=== PATIENT | female | born 1995 | race African-American/Black ===

== ENCOUNTER 2017-07-30 10:36 | Emergency (ER) | payer MEDICAID, OTHER ==
[~2017-07-30] VITALS: Ht 180.3 cm; Wt 100.0 kg
[~2017-07-30 10:36] MED LIST: NOCURR
[2017-07-30 11:32] LABS: EOSINOPHILS # (AUTO) 0.01 K/uL (0.00-0.70); EOSINOPHILS % (AUTO) 0.09 % (1.0-6.0); HEMATOCRIT 39.4 % (36-46); HEMOGLOBIN 12.8 g/dL (12.0-16.0); LYMPHOCYTES # (AUTO) 2.6 K/uL (1.0-4.8); LYMPHOCYTES % (AUTO) 18.2 % (22.0-44.0); MEAN CORPUSCULAR HEMOGLOBIN 25.7 pg (26.0-34.0); MEAN CORPUSCULAR HGB CONC 32.6 G/dL (31.0-37.0); MEAN CORPUSCULAR VOLUME 79 fL (80-100); MONOCYTES # (AUTO) 0.8 K/uL (0.1-1.0); MONOCYTES % (AUTO) 5.5 % (2.0-9.0); NEUTROPHILS # (AUTO) 11.1 K/uL (1.8-7.7); NEUTROPHILS % (AUTO) 76.2 % (40.0-70.0); RED BLOOD CELL COUNT(AUTO) 4.99 MIL/uL (4.00-5.20); RED CELL DISTRIBUTION WIDTH 14.1 % (11.5-14.5)
[2017-07-30 11:35] LABS: WHITE BLOOD COUNT (AUTO) 19.2 K/uL (4.5-11.0)
[2017-07-30 11:41] LABS: ANION GAP 15 mmol/L (8-16); CALCIUM, TOTAL 9.4 mg/dL (8.8-10.5); CARBON DIOXIDE 23 mmol/L (22-29); CHLORIDE 104 mmol/L (98-107); CREATININE 0.83 mg/dL (0.60-1.30); GLOMERULAR FILTR. RATE CALC > 60 mL/min (>60); POTASSIUM 3.9 mmol/L (3.5-5.1); SODIUM SERUM 142 mmol/L (136-145); UREA NITROGEN, BLOOD 10 mg/dL (7-18)
[2017-07-30 11:49] LABS: ALANINE AMINOTRANSFERASE 26 U/L (12-78); ALBUMIN 3.9 g/dL (3.4-5.0); ASPARTATE AMINOTRANSFERASE 17 U/L (15-37); BILIRUBIN,TOTAL 0.7 mg/dL (0.1-1.0); TOTAL PROTEIN, SERUM 8.1 g/dL (6.4-8.2)
[2017-07-30 11:51] LABS: PLATELET COUNT (AUTO) 39 K/uL (150-450)
[2017-07-30 14:05] LABS: APPEARANCE,URINE TURBID (CLEAR); GLUCOSE, URINE (UA) NEGATIVE (NEGATIVE); KETONES,URINE 15 mg/dL (NEGATIVE); LEUKOCYTE ESTERASE ,URINE MODERATE (NEGATIVE); OCCULT BLOOD,URINE NEGATIVE (NEGATIVE); PH,URINE 5.5 (5.0-8.0); PROTEIN,URINE POS 1+ (NEGATIVE)
[2017-07-30 14:06] LABS: ADD UA MICROSCOPIC YES
[2017-07-30 14:11] LABS: RBC,URINE 0-2 /HPF (0-2)
[2017-07-30 14:12] LABS: AMORPHOUS SEDIMENT,UR Many /LPF (None Seen); SQUAMOUS EPITHELIAL CELL,UR Few /LPF (None Seen)
[2017-07-30 16:12] LABS: BASOPHILS % (AUTO) 0.6 % (0.0-2.0); EOSINOPHILS % (AUTO) 0.3 % (1.0-6.0); HEMATOCRIT 39.8 % (36-46); HEMOGLOBIN 13.4 g/dL (12.0-16.0); LYMPHOCYTES # (AUTO) 1.4 K/uL (1.0-4.8); LYMPHOCYTES % (AUTO) 16.8 % (22.0-44.0); MEAN CORPUSCULAR HEMOGLOBIN 26.2 pg (26.0-34.0); MEAN CORPUSCULAR HGB CONC 33.5 G/dL (31.0-37.0); MEAN CORPUSCULAR VOLUME 78 fL (80-100); MONOCYTES # (AUTO) 0.7 K/uL (0.1-1.0); MONOCYTES % (AUTO) 7.9 % (2.0-9.0); NEUTROPHILS # (AUTO) 6.3 K/uL (1.8-7.7); NEUTROPHILS % (AUTO) 74.4 % (40.0-70.0); RED CELL DISTRIBUTION WIDTH 14.1 % (11.5-14.5)
[2017-07-30 16:14] LABS: WHITE BLOOD COUNT (AUTO) 18.9 K/uL (4.5-11.0)
[2017-07-30 16:37] VITALS: BP 151/78
[2017-07-30 17:20] LABS: PLATELET COUNT (AUTO) 123 K/uL (150-450)
== END 2017-07-30 16:40 | disposition home or self-care (01) ==
LOC: EMS 10:38
DX: F41.9 Anxiety disorder, unspecified (principal); D72.829 Elevated white blood cell count, unspecified
CPT/HCPCS: 36415; 71010; 80053; 80307; 81001; 83605; 84703; 85025; 85049; 87040; 87086; 99285; G0480

== ENCOUNTER 2017-12-03 18:25 | Emergency (ER) | payer OTHER ==
[~2017-12-03] VITALS: Ht 160 cm; Wt 95.0 kg
[2017-12-03] MEDS ORDERED: LIDOCAINE HCL 1% 10 ML VIAL INJ ONE (20:00)
[2017-12-03] MEDS ORDERED: BACITRACIN 0.9 GM PACKET OINTMENT TP ONE (20:00)
[2017-12-03 20:30] VITALS: BP 135/87
== END 2017-12-03 20:52 | disposition home or self-care (01) ==
LOC: EMS 18:25
DX: S01.81XA Laceration without foreign body of other part of head, initial encounter (principal); R03.0 Elevated blood-pressure reading, without diagnosis of hypertension; F20.9 Schizophrenia, unspecified; W18.09XA Striking against other object with subsequent fall, initial encounter; Y93.01 Activity, walking, marching and hiking; Y92.89 Other specified places as the place of occurrence of the external cause; Y99.8 Other external cause status
CPT/HCPCS: 12011; 99283; J3490

== ENCOUNTER 2020-01-16 05:05 | Inpatient (IN) | payer MEDICAID ==
[~2020-01-16] VITALS: Ht 160 cm; Wt 118.5 kg
[2020-01-16 06:00] VITALS: BP 133/58
[2020-01-16 08:19] VITALS: BP 120/96
[2020-01-16] MEDS: LORazepam 2 MG TABLET PO PRN ×3 (08:22→21:23)
[2020-01-16] MEDS: OLANZapine 5 MG TABLET PO SCH ×2 (08:22→16:08)
[2020-01-16] MEDS ORDERED: PNEUMOCOCCAL VACCINE POLYVALENT 0.5 ML VIAL [PPSV23] IM ONE (10:15)
[2020-01-16 16:02] VITALS: BP 106/87
[2020-01-16] MEDS ORDERED: GuaiFENesin/D-METHORPHAN [SUGAR-FREE] 200-20MG/10 ML SYRUP UDCUP PO PRN (16:45)
[2020-01-16] MEDS ORDERED: ONDANSETRON HCL 4 MG TABLET PO PRN (16:45)
[2020-01-16] MEDS ORDERED: ALBUTEROL SULFATE HFA 90 MCG/PUFF 8 GM INHALER IH PRN (16:45)
[2020-01-16] MEDS ORDERED: NICOTINE 14 MG/24 HOUR PATCH TD PRN (16:45)
[2020-01-16] MEDS ORDERED: CloNIDine HCL 0.1 MG TABLET PO PRN (16:45)
[2020-01-16] MEDS ORDERED: PETROLATUM,WHITE 28 GM JELLY TP PRN (16:45)
[2020-01-16] MEDS ORDERED: MAG HYDROX/AL HYDROX/SIMETH ES 30 ML SUSPENSION UDCUP PO PRN (16:45)
[2020-01-16] MEDS ORDERED: LOPERAMIDE HCL 2 MG CAPSULE PO PRN (16:45)
[2020-01-16] MEDS ORDERED: QUEtiapine FUMARATE 200 MG TABLET PO SCH (21:00)
[2020-01-16] MEDS ORDERED: DIVALPROEX SODIUM 500 MG DR TABLET PO SCH (21:00)
[2020-01-17 00:12] VITALS: BP 134/66
[2020-01-17] MEDS ORDERED: IBUPROFEN 400 MG TABLET PO PRN (08:15)
[2020-01-17] MEDS ORDERED: MAGNESIUM HYDROXIDE SUSPENSION 30 ML UDCUP PO PRN (08:15)
[2020-01-17] MEDS ORDERED: ACETAMINOPHEN 325 MG TABLET PO PRN (08:15)
[2020-01-17] MEDS ORDERED: CloNIDine HCL 0.1 MG TABLET PO PRN (08:15)
[2020-01-17] MEDS ORDERED: PETROLATUM,WHITE 28 GM JELLY TP PRN (08:15)
[2020-01-17] MEDS ORDERED: ONDANSETRON HCL 4 MG TABLET PO PRN (08:15)
[2020-01-17] MEDS ORDERED: LOPERAMIDE HCL 2 MG CAPSULE PO PRN (08:15)
[2020-01-17] MEDS ORDERED: ALBUTEROL SULFATE HFA 90 MCG/PUFF 8 GM INHALER IH PRN (08:15)
[2020-01-17] MEDS ORDERED: MAG HYDROX/AL HYDROX/SIMETH ES 30 ML SUSPENSION UDCUP PO PRN (08:15)
[2020-01-17] MEDS ORDERED: NICOTINE 14 MG/24 HOUR PATCH TD PRN (08:15)
[2020-01-17] MEDS ORDERED: DOCUSATE SODIUM 100 MG CAPSULE PO PRN (08:15)
[2020-01-17] MEDS ORDERED: GuaiFENesin/D-METHORPHAN [SUGAR-FREE] 200-20MG/10 ML SYRUP UDCUP PO PRN (08:15)
[2020-01-17] MEDS: OLANZapine 5 MG TABLET PO SCH (08:17)
[2020-01-17] MEDS: LORazepam 2 MG TABLET PO PRN ×3 (08:17→20:31)
[2020-01-17 08:31] LABS: BASOPHILS % (AUTO) 0.5 % (0.0-2.0); HEMATOCRIT 36.7 % (36-46); HEMOGLOBIN 12.3 g/dL (12.0-16.0); MEAN CORPUSCULAR HEMOGLOBIN 25.6 pg (26.0-34.0); MEAN CORPUSCULAR HGB CONC 33.5 G/dL (31.0-37.0); MEAN CORPUSCULAR VOLUME 77 fL (80-100); MONOCYTES # (AUTO) 1.3 K/uL (0.1-1.0); MONOCYTES % (AUTO) 9.1 % (2.0-9.0); NEUTROPHILS # (AUTO) 8.4 K/uL (1.8-7.7); NEUTROPHILS % (AUTO) 60.4 % (40.0-70.0); RED CELL DISTRIBUTION WIDTH 14.1 % (11.5-14.5)
[2020-01-17 08:46] LABS: CHOL/HDL RATIO 2.8 (3.9-5.7)
[2020-01-17 09:19] VITALS: BP 128/73
[2020-01-17] MEDS ORDERED: DIVA-112 PO (09:38)
[2020-01-17] MEDS ORDERED: OLAN10TA3 PO (09:38)
[2020-01-17] MEDS ORDERED: QUET100T PO (09:38)
[2020-01-17] MEDS: IBUPROFEN 400 MG TABLET PO PRN ×2 (10:21→19:27)
[2020-01-17 10:30] LABS: PLATELET COUNT (AUTO) 105 K/uL (150-450)
[2020-01-17 16:03] VITALS: BP 115/62
[2020-01-17] MEDS: DIVALPROEX SODIUM 500 MG DR TABLET PO SCH (16:47)
[2020-01-17] MEDS: QUEtiapine FUMARATE 200 MG TABLET PO SCH (16:48)
[2020-01-17 19:27] VITALS: BP 108/61
[2020-01-18 01:03] VITALS: BP 131/80
[2020-01-18] MEDS: ZOLPIDEM TARTRATE 10 MG TABLET PO PRN ×2 (02:08→20:13)
[2020-01-18] MEDS: QUEtiapine FUMARATE 200 MG TABLET PO SCH ×2 (08:44→16:30)
[2020-01-18] MEDS: DIVALPROEX SODIUM 500 MG DR TABLET PO SCH ×2 (08:45→16:29)
[2020-01-18] MEDS: ESCITALOPRAM OXALATE 10 MG TABLET PO SCH (12:30)
[2020-01-18 16:05] VITALS: BP 136/82
[2020-01-18] MEDS: IBUPROFEN 400 MG TABLET PO PRN (16:30)
[2020-01-18] MEDS: LORazepam 2 MG TABLET PO PRN (18:50)
[2020-01-19] MEDS: LORazepam 2 MG TABLET PO PRN ×4 (00:15→15:10)
[2020-01-19 01:02] VITALS: BP 140/80
[2020-01-19 05:00] VITALS: BP 130/72
[2020-01-19] MEDS: ESCITALOPRAM OXALATE 10 MG TABLET PO SCH (08:19)
[2020-01-19] MEDS: DIVALPROEX SODIUM 500 MG DR TABLET PO SCH ×2 (08:20→16:29)
[2020-01-19] MEDS: QUEtiapine FUMARATE 200 MG TABLET PO SCH ×2 (08:20→16:29)
[2020-01-19 08:24] VITALS: BP 151/87
[2020-01-19] MEDS ORDERED: ESCITALOPRAM OXALATE 10 MG TABLET PO ONE (12:45)
[2020-01-19 16:00] VITALS: BP 145/73
[2020-01-19 17:41] VITALS: BP 145/73
[2020-01-20 00:01] VITALS: BP 139/81
[2020-01-20] MEDS: ZOLPIDEM TARTRATE 10 MG TABLET PO PRN (00:11)
[2020-01-20 04:20] VITALS: BP 140/90
[2020-01-20] MEDS: LORazepam 2 MG TABLET PO PRN ×2 (04:26→13:02)
[2020-01-20 08:17] VITALS: BP 103/69
[2020-01-20] MEDS: DIVALPROEX SODIUM 500 MG DR TABLET PO SCH ×2 (08:28→16:35)
[2020-01-20] MEDS: ESCITALOPRAM OXALATE 20 MG TABLET PO SCH (08:31)
[2020-01-20] MEDS: QUEtiapine FUMARATE 200 MG TABLET PO SCH ×2 (08:32→16:35)
[2020-01-20 16:22] VITALS: BP 140/73
[2020-01-21] MEDS: ZOLPIDEM TARTRATE 10 MG TABLET PO PRN (00:06)
[2020-01-21 02:45] VITALS: BP 134/80
[2020-01-21 08:05] VITALS: BP 149/74
[2020-01-21] MEDS: DIVALPROEX SODIUM 500 MG DR TABLET PO SCH ×2 (08:30→16:22)
[2020-01-21] MEDS: QUEtiapine FUMARATE 200 MG TABLET PO SCH ×2 (08:30→16:22)
[2020-01-21] MEDS: ESCITALOPRAM OXALATE 20 MG TABLET PO SCH (08:31)
[2020-01-21] MEDS: LORazepam 2 MG TABLET PO PRN ×3 (08:51→17:55)
[2020-01-21 16:16] VITALS: BP 133/76
[2020-01-22 03:00] VITALS: BP 140/92
[2020-01-22] MEDS: LORazepam 2 MG TABLET PO PRN ×2 (03:15→08:07)
[2020-01-22] MEDS: DIVALPROEX SODIUM 500 MG DR TABLET PO SCH ×2 (08:01→16:04)
[2020-01-22] MEDS: QUEtiapine FUMARATE 200 MG TABLET PO SCH ×2 (08:01→16:04)
[2020-01-22] MEDS: ESCITALOPRAM OXALATE 20 MG TABLET PO SCH (08:01)
[2020-01-22 08:13] VITALS: BP 136/81
[2020-01-22] MEDS: MAGNESIUM HYDROXIDE SUSPENSION 30 ML UDCUP PO PRN (11:03)
[2020-01-22 16:03] VITALS: BP 138/80
[2020-01-22] MEDS: LORazepam 0.5 MG TABLET PO SCH (16:04)
[2020-01-23 01:20] VITALS: BP 140/79
[2020-01-23] MEDS: LORazepam 2 MG TABLET PO PRN (03:20)
[2020-01-23] MEDS: QUEtiapine FUMARATE 200 MG TABLET PO SCH ×2 (08:19→16:59)
[2020-01-23] MEDS: DIVALPROEX SODIUM 500 MG DR TABLET PO SCH ×2 (08:19→16:59)
[2020-01-23] MEDS: ESCITALOPRAM OXALATE 20 MG TABLET PO SCH (08:19)
[2020-01-23] MEDS: LORazepam 0.5 MG TABLET PO SCH ×2 (08:19→16:59)
[2020-01-23 09:11] LABS: HEMATOCRIT 37.7 % (36-46); HEMOGLOBIN 12.4 g/dL (12.0-16.0); MEAN CORPUSCULAR HEMOGLOBIN 25.5 pg (26.0-34.0); MEAN CORPUSCULAR HGB CONC 32.8 G/dL (31.0-37.0); MEAN CORPUSCULAR VOLUME 78 fL (80-100); RED BLOOD CELL COUNT(AUTO) 4.85 MIL/uL (4.00-5.20); RED CELL DISTRIBUTION WIDTH 14.1 % (11.5-14.5)
[2020-01-23 09:15] LABS: BAND NEUTROPHILS % (MANUAL) 0 % (0-5)
[2020-01-23 09:27] LABS: ANION GAP 11 mmol/L (8-16); CARBON DIOXIDE 27 mmol/L (22-29); CHLORIDE 100 mmol/L (98-107); CREATININE 0.86 mg/dL (0.60-1.30); GLOMERULAR FILTR. RATE CALC > 60 mL/min (>60); GLUCOSE,RANDOM 71 mg/dL (70-110); POTASSIUM 4.2 mmol/L (3.5-5.1); SODIUM SERUM 138 mmol/L (136-145); UREA NITROGEN, BLOOD 6 mg/dL (7-18)
[2020-01-23 09:48] VITALS: BP 123/81
[2020-01-23 10:38] LABS: EOSINOPHILS % (MANUAL) 6 % (1-6); LYMPHOCYTES % (MANUAL) 24 % (22-44); MONOCYTES % (MANUAL) 6 % (2-9); SEGMENTED NEUTROPHILS % 64 % (40-70)
[2020-01-23 10:52] LABS: PLATELET COUNT (AUTO) 144 K/uL (150-450)
[2020-01-23] MEDS ORDERED: ASPIRIN 81 MG CHEWABLE TABLET PO SCH (12:00)
[2020-01-23 13:51] LABS: HEMOGLOBIN A1C 5.2 % (3.8-5.6)
[2020-01-23 16:45] VITALS: BP 136/55
[2020-01-23] MEDS: ZOLPIDEM TARTRATE 10 MG TABLET PO PRN (21:26)
[2020-01-24 01:38] VITALS: BP 139/98
[2020-01-24] MEDS: LORazepam 2 MG TABLET PO PRN ×2 (02:12→16:14)
[2020-01-24 07:38] LABS: APPEARANCE,URINE TURBID (CLEAR); BILIRUBIN,URINE NEGATIVE (NEGATIVE); GLUCOSE, URINE (UA) NEGATIVE (NEGATIVE); KETONES,URINE 40 mg/dL (NEGATIVE); LEUKOCYTE ESTERASE ,URINE SMALL (NEGATIVE); NITRATE,URINE POSITIVE (NEGATIVE); OCCULT BLOOD,URINE NEGATIVE (NEGATIVE); PROTEIN,URINE NEGATIVE (NEGATIVE)
[2020-01-24] MEDS ORDERED: DiphenhydrAMINE HCL 50 MG/ML VIAL ONE (07:43)
[2020-01-24] MEDS ORDERED: HALOPERIDOL LACTATE 5 MG/ML VIAL ONE (07:43)
[2020-01-24] MEDS ORDERED: LORazepam 2 MG/ML VIAL ONE (07:43)
[2020-01-24 08:10] LABS: RBC,URINE 0-2 /HPF (0-2)
[2020-01-24 08:11] LABS: AMORPHOUS SEDIMENT,UR Many /LPF (None Seen); BACTERIA,URINE Many /HPF (None Seen)
[2020-01-24] MEDS ORDERED: LORazepam 2 MG/ML VIAL IM ONE (08:15)
[2020-01-24] MEDS ORDERED: DiphenhydrAMINE HCL 50 MG/ML VIAL IM ONE (08:15)
[2020-01-24] MEDS ORDERED: HALOPERIDOL LACTATE 5 MG/ML VIAL IM ONE (08:15)
[2020-01-24] MEDS: DIVALPROEX SODIUM 500 MG DR TABLET PO SCH ×2 (08:42→16:14)
[2020-01-24] MEDS: LORazepam 0.5 MG TABLET PO SCH (08:42)
[2020-01-24] MEDS: ESCITALOPRAM OXALATE 20 MG TABLET PO SCH (08:43)
[2020-01-24] MEDS: QUEtiapine FUMARATE 200 MG TABLET PO SCH ×2 (08:43→22:32)
[2020-01-24 09:02] VITALS: BP 102/60
[2020-01-24 16:21] VITALS: BP 133/96
[2020-01-24] MEDS: ClonazePAM 1 MG TABLET PO SCH (22:32)
[2020-01-25] MEDS: LORazepam 2 MG TABLET PO PRN ×2 (03:30→09:29)
[2020-01-25] MEDS: ESCITALOPRAM OXALATE 20 MG TABLET PO SCH (08:01)
[2020-01-25] MEDS: QUEtiapine FUMARATE 200 MG TABLET PO SCH ×2 (08:01→20:01)
[2020-01-25] MEDS: DIVALPROEX SODIUM 500 MG DR TABLET PO SCH ×2 (08:01→16:44)
[2020-01-25] MEDS: ClonazePAM 1 MG TABLET PO SCH ×2 (08:01→20:01)
[2020-01-25 08:04] VITALS: BP 152/75
[2020-01-25] MEDS: IBUPROFEN 400 MG TABLET PO PRN ×2 (09:29→20:59)
[2020-01-25 16:27] VITALS: BP 119/59
[2020-01-26 07:29] LABS: HEMATOCRIT 36.7 % (36-46); HEMOGLOBIN 11.7 g/dL (12.0-16.0); MEAN CORPUSCULAR HEMOGLOBIN 24.9 pg (26.0-34.0); MEAN CORPUSCULAR VOLUME 78 fL (80-100); RED CELL DISTRIBUTION WIDTH 14.3 % (11.5-14.5)
[2020-01-26 07:57] LABS: APPEARANCE,URINE TURBID (CLEAR); GLUCOSE, URINE (UA) NEGATIVE (NEGATIVE); KETONES,URINE 15 mg/dL (NEGATIVE); LEUKOCYTE ESTERASE ,URINE MODERATE (NEGATIVE); NITRATE,URINE NEGATIVE (NEGATIVE); OCCULT BLOOD,URINE NEGATIVE (NEGATIVE); PROTEIN,URINE TRACE (NEGATIVE)
[2020-01-26 08:00] LABS: BILIRUBIN,URINE PRELIM. POSITIVE (NEGATIVE)
[2020-01-26 08:09] VITALS: BP 139/67
[2020-01-26 08:10] LABS: AMORPHOUS SEDIMENT,UR Many /LPF (None Seen); BACTERIA,URINE None Seen /HPF (None Seen); RBC,URINE None Seen /HPF (0-2)
[2020-01-26] MEDS: ESCITALOPRAM OXALATE 20 MG TABLET PO SCH (08:10)
[2020-01-26] MEDS: QUEtiapine FUMARATE 200 MG TABLET PO SCH ×2 (08:10→20:34)
[2020-01-26] MEDS: DIVALPROEX SODIUM 500 MG DR TABLET PO SCH ×2 (08:10→16:14)
[2020-01-26] MEDS: ClonazePAM 1 MG TABLET PO SCH ×2 (08:10→20:34)
[2020-01-26 14:32] LABS: PLATELET COUNT (AUTO) 356 K/uL (150-450)
[2020-01-26 14:34] LABS: BASOPHILS % (AUTO) 1.7 % (0.0-2.0); EOSINOPHILS % (AUTO) 3.4 % (1.0-6.0); LYMPHOCYTES # (AUTO) 2.1 K/uL (1.0-4.8); LYMPHOCYTES % (AUTO) 26.3 % (22.0-44.0); MONOCYTES # (AUTO) 0.9 K/uL (0.1-1.0); MONOCYTES % (AUTO) 10.5 % (2.0-9.0); NEUTROPHILS # (AUTO) 4.7 K/uL (1.8-7.7); NEUTROPHILS % (AUTO) 58.1 % (40.0-70.0)
[2020-01-26 16:02] VITALS: BP 105/68
[2020-01-26] MEDS: CIPROFLOXACIN HCL 500 MG TABLET PO SCH (16:14)
[2020-01-26] MEDS ORDERED: MIRTAZAPINE 15 MG TABLET PO SCH (21:00)
[2020-01-27 03:20] VITALS: BP 142/98
[2020-01-27] MEDS: IBUPROFEN 400 MG TABLET PO PRN (03:20)
[2020-01-27 03:43] VITALS: BP 142/98
[2020-01-27] MEDS: ClonazePAM 1 MG TABLET PO SCH ×2 (08:07→16:32)
[2020-01-27] MEDS: ESCITALOPRAM OXALATE 20 MG TABLET PO SCH (08:07)
[2020-01-27] MEDS: QUEtiapine FUMARATE 200 MG TABLET PO SCH ×2 (08:07→20:32)
[2020-01-27] MEDS: CIPROFLOXACIN HCL 500 MG TABLET PO SCH ×2 (08:07→16:32)
[2020-01-27] MEDS: DIVALPROEX SODIUM 500 MG DR TABLET PO SCH ×2 (08:07→16:31)
[2020-01-27 09:00] VITALS: BP 142/89
[2020-01-27 16:18] VITALS: BP 138/89
[2020-01-27] MEDS: LORazepam 2 MG TABLET PO PRN (16:31)
[2020-01-27] MEDS: ACETAMINOPHEN 325 MG TABLET PO PRN (16:32)
[2020-01-27] MEDS: ZOLPIDEM TARTRATE 10 MG TABLET PO PRN (20:32)
[2020-01-27] MEDS: MIRTAZAPINE 30 MG TABLET PO SCH (20:32)
[2020-01-28 06:48] VITALS: BP 118/91
[2020-01-28] MEDS: QUEtiapine FUMARATE 200 MG TABLET PO SCH ×2 (08:01→20:14)
[2020-01-28] MEDS: ClonazePAM 1 MG TABLET PO SCH ×3 (08:01→16:14)
[2020-01-28] MEDS: CIPROFLOXACIN HCL 500 MG TABLET PO SCH ×2 (08:01→16:14)
[2020-01-28] MEDS: ESCITALOPRAM OXALATE 20 MG TABLET PO SCH (08:01)
[2020-01-28] MEDS: DIVALPROEX SODIUM 500 MG DR TABLET PO SCH ×2 (08:01→16:14)
[2020-01-28 08:57] VITALS: BP 149/97
[2020-01-28 16:07] VITALS: BP 146/85
[2020-01-28] MEDS: MIRTAZAPINE 30 MG TABLET PO SCH (20:49)
[2020-01-29 05:26] VITALS: BP 133/82
[2020-01-29] MEDS: QUEtiapine FUMARATE 200 MG TABLET PO SCH ×2 (08:26→21:21)
[2020-01-29] MEDS: DIVALPROEX SODIUM 500 MG DR TABLET PO SCH ×2 (08:26→17:19)
[2020-01-29] MEDS: ClonazePAM 1 MG TABLET PO SCH ×3 (08:26→17:19)
[2020-01-29] MEDS: CIPROFLOXACIN HCL 500 MG TABLET PO SCH ×2 (08:26→17:19)
[2020-01-29] MEDS: ESCITALOPRAM OXALATE 20 MG TABLET PO SCH (08:26)
[2020-01-29 08:59] VITALS: BP 118/64
[2020-01-29 16:33] VITALS: BP 131/91
[2020-01-29] MEDS: ZOLPIDEM TARTRATE 10 MG TABLET PO PRN (21:21)
[2020-01-29] MEDS: MIRTAZAPINE 30 MG TABLET PO SCH (21:21)
[2020-01-30 02:05] VITALS: BP 110/65
[2020-01-30] MEDS: LORazepam 2 MG TABLET PO PRN (03:57)
[2020-01-30] MEDS: ESCITALOPRAM OXALATE 20 MG TABLET PO SCH (08:12)
[2020-01-30] MEDS: QUEtiapine FUMARATE 200 MG TABLET PO SCH ×2 (08:12→20:24)
[2020-01-30] MEDS: DIVALPROEX SODIUM 500 MG DR TABLET PO SCH ×2 (08:12→16:51)
[2020-01-30] MEDS: ClonazePAM 1 MG TABLET PO SCH ×3 (08:12→16:51)
[2020-01-30] MEDS: CIPROFLOXACIN HCL 500 MG TABLET PO SCH ×2 (08:12→16:51)
[2020-01-30 09:07] VITALS: BP 148/79
[2020-01-30 16:00] VITALS: BP 124/61
[2020-01-30] MEDS: MIRTAZAPINE 30 MG TABLET PO SCH (20:24)
[2020-01-31 02:19] VITALS: BP 138/92
[2020-01-31] MEDS: ZOLPIDEM TARTRATE 10 MG TABLET PO PRN ×2 (02:33→21:03)
[2020-01-31] MEDS: LORazepam 2 MG TABLET PO PRN (02:33)
[2020-01-31] MEDS: CIPROFLOXACIN HCL 500 MG TABLET PO SCH (08:09)
[2020-01-31] MEDS: ClonazePAM 1 MG TABLET PO SCH ×3 (08:09→16:35)
[2020-01-31] MEDS: ESCITALOPRAM OXALATE 20 MG TABLET PO SCH (08:09)
[2020-01-31] MEDS: QUEtiapine FUMARATE 200 MG TABLET PO SCH ×2 (08:10→20:06)
[2020-01-31] MEDS: DIVALPROEX SODIUM 500 MG DR TABLET PO SCH ×2 (08:10→16:35)
[2020-01-31 08:19] VITALS: BP 139/88
[2020-01-31] MEDS: ACETAMINOPHEN 325 MG TABLET PO PRN (13:50)
[2020-01-31 16:07] VITALS: BP 118/87
[2020-01-31] MEDS: MIRTAZAPINE 30 MG TABLET PO SCH (20:06)
[2020-02-01 00:56] VITALS: BP 142/94
[2020-02-01 08:07] VITALS: BP 130/89
[2020-02-01] MEDS: QUEtiapine FUMARATE 200 MG TABLET PO SCH ×2 (08:37→20:10)
[2020-02-01] MEDS: DIVALPROEX SODIUM 500 MG DR TABLET PO SCH ×2 (08:37→16:09)
[2020-02-01] MEDS: ClonazePAM 1 MG TABLET PO SCH ×3 (08:37→16:09)
[2020-02-01] MEDS: ESCITALOPRAM OXALATE 20 MG TABLET PO SCH (08:37)
[2020-02-01] MEDS: BuPROPion HCL XL 150 MG ER TABLET PO SCH (12:16)
[2020-02-01 18:38] VITALS: BP 127/74
[2020-02-01] MEDS: MIRTAZAPINE 30 MG TABLET PO SCH (20:10)
[2020-02-01] MEDS: ZOLPIDEM TARTRATE 10 MG TABLET PO PRN (21:24)
[2020-02-02 06:06] VITALS: BP 135/91
[2020-02-02] MEDS: ACETAMINOPHEN 325 MG TABLET PO PRN (06:52)
[2020-02-02 08:04] VITALS: BP 103/61
[2020-02-02] MEDS: QUEtiapine FUMARATE 200 MG TABLET PO SCH ×2 (08:09→20:04)
[2020-02-02] MEDS: DIVALPROEX SODIUM 500 MG DR TABLET PO SCH ×2 (08:09→16:09)
[2020-02-02] MEDS: ClonazePAM 1 MG TABLET PO SCH ×3 (08:09→16:09)
[2020-02-02] MEDS: BuPROPion HCL XL 150 MG ER TABLET PO SCH (08:09)
[2020-02-02] MEDS: ESCITALOPRAM OXALATE 20 MG TABLET PO SCH (08:10)
[2020-02-02 16:04] VITALS: BP 127/92
[2020-02-02] MEDS: MIRTAZAPINE 30 MG TABLET PO SCH (20:04)
[2020-02-03 00:03] VITALS: BP 140/96
[2020-02-03 07:53] VITALS: BP 124/95
[2020-02-03] MEDS: ClonazePAM 1 MG TABLET PO SCH ×3 (08:29→16:33)
[2020-02-03] MEDS: BuPROPion HCL XL 150 MG ER TABLET PO SCH (08:29)
[2020-02-03] MEDS: QUEtiapine FUMARATE 200 MG TABLET PO SCH ×2 (08:29→20:32)
[2020-02-03] MEDS: ESCITALOPRAM OXALATE 20 MG TABLET PO SCH (08:30)
[2020-02-03] MEDS: DIVALPROEX SODIUM 500 MG DR TABLET PO SCH ×2 (08:30→16:33)
[2020-02-03 12:31] VITALS: BP 124/95
[2020-02-03] MEDS: MIRTAZAPINE 30 MG TABLET PO SCH (20:32)
[2020-02-04 02:18] VITALS: BP 122/75
[2020-02-04] MEDS: IBUPROFEN 400 MG TABLET PO PRN (02:20)
[2020-02-04] MEDS: ClonazePAM 1 MG TABLET PO SCH ×3 (08:09→18:19)
[2020-02-04] MEDS: DIVALPROEX SODIUM 500 MG DR TABLET PO SCH ×2 (08:09→18:19)
[2020-02-04] MEDS: QUEtiapine FUMARATE 200 MG TABLET PO SCH ×2 (08:09→21:02)
[2020-02-04] MEDS: BuPROPion HCL XL 150 MG ER TABLET PO SCH (08:10)
[2020-02-04] MEDS: ESCITALOPRAM OXALATE 20 MG TABLET PO SCH (08:10)
[2020-02-04 08:56] VITALS: BP 105/84
[2020-02-04 16:21] VITALS: BP 122/82
[2020-02-04] MEDS: MIRTAZAPINE 30 MG TABLET PO SCH (21:02)
[2020-02-05 00:20] VITALS: BP 120/99
[2020-02-05] MEDS: ESCITALOPRAM OXALATE 20 MG TABLET PO SCH (08:03)
[2020-02-05] MEDS: BuPROPion HCL XL 150 MG ER TABLET PO SCH (08:03)
[2020-02-05] MEDS: ClonazePAM 1 MG TABLET PO SCH ×3 (08:03→16:05)
[2020-02-05] MEDS: DIVALPROEX SODIUM 500 MG DR TABLET PO SCH ×2 (08:03→16:05)
[2020-02-05] MEDS: QUEtiapine FUMARATE 200 MG TABLET PO SCH ×2 (08:03→20:07)
[2020-02-05 08:33] VITALS: BP 118/72
[2020-02-05] MEDS: MAGNESIUM HYDROXIDE SUSPENSION 30 ML UDCUP PO PRN (12:36)
[2020-02-05] MEDS: DOCUSATE SODIUM 100 MG CAPSULE PO PRN (16:05)
[2020-02-05 16:07] VITALS: BP 134/89
[2020-02-05] MEDS: MIRTAZAPINE 30 MG TABLET PO SCH (20:07)
[2020-02-06 00:30] VITALS: BP 137/87
[2020-02-06] MEDS: DIVALPROEX SODIUM 500 MG DR TABLET PO SCH ×2 (08:05→17:28)
[2020-02-06] MEDS: ESCITALOPRAM OXALATE 20 MG TABLET PO SCH (08:05)
[2020-02-06] MEDS: QUEtiapine FUMARATE 200 MG TABLET PO SCH ×2 (08:05→20:32)
[2020-02-06] MEDS: BuPROPion HCL XL 150 MG ER TABLET PO SCH (08:05)
[2020-02-06] MEDS: ClonazePAM 1 MG TABLET PO SCH ×3 (08:05→17:28)
[2020-02-06 08:39] VITALS: BP 115/69
[2020-02-06 17:24] VITALS: BP_SYST 109; BP_SYST 115; BP_DIAS 74; BP_DIAS 78
[2020-02-06] MEDS: ACETAMINOPHEN 325 MG TABLET PO PRN (17:42)
[2020-02-06] MEDS: MIRTAZAPINE 30 MG TABLET PO SCH (20:32)
[2020-02-06] MEDS: ZOLPIDEM TARTRATE 10 MG TABLET PO PRN (23:45)
[2020-02-07 00:23] VITALS: BP 128/87
[2020-02-07] MEDS: BuPROPion HCL XL 150 MG ER TABLET PO SCH (08:13)
[2020-02-07] MEDS: ClonazePAM 1 MG TABLET PO SCH ×3 (08:13→16:12)
[2020-02-07] MEDS: DIVALPROEX SODIUM 500 MG DR TABLET PO SCH ×2 (08:13→16:12)
[2020-02-07] MEDS: ESCITALOPRAM OXALATE 20 MG TABLET PO SCH (08:13)
[2020-02-07] MEDS: QUEtiapine FUMARATE 200 MG TABLET PO SCH ×2 (08:13→20:17)
[2020-02-07 09:15] VITALS: BP 106/62
[2020-02-07] MEDS: LORazepam 2 MG TABLET PO PRN (10:15)
[2020-02-07] MEDS: MIRTAZAPINE 30 MG TABLET PO SCH (20:17)
[2020-02-07] MEDS: ZOLPIDEM TARTRATE 10 MG TABLET PO PRN (23:53)
[2020-02-08] MEDS: DOCUSATE SODIUM 100 MG CAPSULE PO PRN (06:35)
[2020-02-08 08:15] VITALS: BP 140/78
[2020-02-08] MEDS: DIVALPROEX SODIUM 500 MG DR TABLET PO SCH ×2 (09:20→17:04)
[2020-02-08] MEDS: QUEtiapine FUMARATE 200 MG TABLET PO SCH ×2 (09:21→20:17)
[2020-02-08] MEDS: ClonazePAM 1 MG TABLET PO SCH ×3 (09:21→17:04)
[2020-02-08] MEDS: LORazepam 2 MG TABLET PO PRN (09:21)
[2020-02-08] MEDS: BuPROPion HCL XL 150 MG ER TABLET PO SCH (09:21)
[2020-02-08] MEDS: ESCITALOPRAM OXALATE 20 MG TABLET PO SCH (09:45)
[2020-02-08 16:08] VITALS: BP 129/76
[2020-02-08] MEDS: MIRTAZAPINE 30 MG TABLET PO SCH (20:17)
[2020-02-09 00:49] VITALS: BP 141/91
[2020-02-09] MEDS: BuPROPion HCL XL 150 MG ER TABLET PO SCH (08:14)
[2020-02-09] MEDS: ClonazePAM 1 MG TABLET PO SCH ×3 (08:14→16:21)
[2020-02-09] MEDS: QUEtiapine FUMARATE 200 MG TABLET PO SCH ×2 (08:14→20:18)
[2020-02-09] MEDS: ESCITALOPRAM OXALATE 20 MG TABLET PO SCH (08:15)
[2020-02-09] MEDS: DIVALPROEX SODIUM 500 MG DR TABLET PO SCH ×2 (08:15→16:21)
[2020-02-09 08:26] VITALS: BP 123/66
[2020-02-09] MEDS: LORazepam 2 MG TABLET PO PRN ×2 (10:29→16:27)
[2020-02-09 16:21] VITALS: BP 122/70
[2020-02-09] MEDS: MIRTAZAPINE 30 MG TABLET PO SCH (20:18)
[2020-02-10 04:00] VITALS: BP 145/90
[2020-02-10] MEDS: BuPROPion HCL XL 150 MG ER TABLET PO SCH (08:08)
[2020-02-10] MEDS: QUEtiapine FUMARATE 200 MG TABLET PO SCH (08:08)
[2020-02-10] MEDS: ESCITALOPRAM OXALATE 20 MG TABLET PO SCH (08:08)
[2020-02-10] MEDS: ClonazePAM 1 MG TABLET PO SCH ×2 (08:08→12:32)
[2020-02-10] MEDS: DIVALPROEX SODIUM 500 MG DR TABLET PO SCH ×2 (08:08→17:34)
[2020-02-10 08:19] VITALS: BP 118/75
[2020-02-10] MEDS ORDERED: BUPR-93 PO (12:51)
[2020-02-10] MEDS ORDERED: MIRT30 PO (12:51)
[2020-02-10] MEDS ORDERED: QUET50TA PO (12:51)
[2020-02-10] MEDS ORDERED: CLON2 PO (12:51)
[2020-02-10] MEDS ORDERED: DIVA-80 PO (12:51)
[2020-02-10] MEDS ORDERED: QUET200T PO (12:51)
[2020-02-10] MEDS ORDERED: ESCI20TA87 PO (12:51)
[2020-02-10] MEDS ORDERED: CLON.5 PO (13:10)
[2020-02-10 16:29] VITALS: BP 121/79
== END 2020-02-10 19:20 | disposition home or self-care (01) | DRG 885 ==
LOC: B2S 07:51
PROVIDERS: ADMIT Psychiatry & Neurology Psychiatry; ATTEND Psychiatry & Neurology Psychiatry
DX: F31.5 Bipolar disorder, current episode depressed, severe, with psychotic features (principal); Z91.19 Patient's noncompliance with other medical treatment and regimen; Z81.8 Family history of other mental and behavioral disorders; F12.90 Cannabis use, unspecified, uncomplicated; F41.1 Generalized anxiety disorder; D72.829 Elevated white blood cell count, unspecified; Z59.0 Homelessness; K59.00 Constipation, unspecified; Z28.21 Immunization not carried out because of patient refusal
CPT/HCPCS: 83036; 87086; J1200; J1630; J2060

== ENCOUNTER 2021-04-06 15:05 | Emergency (ER) | payer MEDICAID, OTHER ==
[~2021-04-06] VITALS: Ht 167.6 cm; Wt 113.6 kg
[~2021-04-06 15:05] MED LIST changes: +BUPR-93 PO; +CLON-592 PO; +DIVA-80 PO; +ESCI20TA87 PO; +MIRT30 PO; -NOCURR; +QUET200T PO; +QUET50TA PO
[2021-04-06] MEDS ORDERED: AMLO-258 PO (16:22)
[2021-04-06] MEDS ORDERED: SENN1TAB72 PO (16:22)
[2021-04-06] MEDS ORDERED: LITH600C5 PO (16:22)
[2021-04-06] MEDS ORDERED: METO-558 PO (16:22)
[2021-04-06] MEDS ORDERED: TRAZ-252 PO (16:22)
[2021-04-06] MEDS ORDERED: OLAN5TAB52 PO (16:22)
[2021-04-06] MEDS ORDERED: CHOL-35 PO (16:22)
[2021-04-06] MEDS ORDERED: METF-910 PO (16:22)
[2021-04-06] MEDS ORDERED: HYD25 PO (16:22)
[2021-04-06] MEDS ORDERED: CLOZ100T32 PO (16:22)
[2021-04-06] MEDS ORDERED: POLY17PO47 PO (16:22)
[2021-04-06 16:36] LABS: BASOPHILS % (AUTO) 0.6 % (0.0-2.0); EOSINOPHILS % (AUTO) 2.2 % (1.0-6.0); HEMATOCRIT 33.1 % (36-46); HEMOGLOBIN 10.7 g/dL (12.0-16.0); LYMPHOCYTES # (AUTO) 2.5 K/uL (1.0-4.8); LYMPHOCYTES % (AUTO) 23.6 % (22.0-44.0); MEAN CORPUSCULAR HEMOGLOBIN 24.8 pg (26.0-34.0); MEAN CORPUSCULAR HGB CONC 32.5 G/dL (31.0-37.0); MEAN CORPUSCULAR VOLUME 76 fL (80-100); MONOCYTES # (AUTO) 0.7 K/uL (0.1-1.0); MONOCYTES % (AUTO) 7.1 % (2.0-9.0); NEUTROPHILS % (AUTO) 66.5 % (40.0-70.0); PLATELET COUNT (AUTO) 385 K/uL (150-450); RED BLOOD CELL COUNT(AUTO) 4.34 MIL/uL (4.00-5.20); RED CELL DISTRIBUTION WIDTH 15.1 % (11.5-14.5)
[2021-04-06 16:49] LABS: ANION GAP 8 mmol/L (8-16); CALCIUM, TOTAL 8.5 mg/dL (8.8-10.5); CARBON DIOXIDE 25 mmol/L (22-29); CHLORIDE 106 mmol/L (98-107); CREATININE 0.94 mg/dL (0.60-1.30); GLOMERULAR FILTR. RATE CALC > 60 mL/min (>60); GLUCOSE,RANDOM 88 mg/dL (70-110); POTASSIUM 4.3 mmol/L (3.5-5.1); SODIUM SERUM 139 mmol/L (136-145); UREA NITROGEN, BLOOD 17 mg/dL (7-18)
[2021-04-06 17:01] LABS: ALANINE AMINOTRANSFERASE 52 U/L (12-78); ALBUMIN 3.1 g/dL (3.4-5.0); ALKALINE PHOSPHATASE 82 U/L (46-116); ASPARTATE AMINOTRANSFERASE 19 U/L (15-37); BILIRUBIN,TOTAL 0.2 mg/dL (0.1-1.0); HCG,QUANTITATIVE < 1 mIU/mL (0-6); TOTAL PROTEIN, SERUM 7.1 g/dL (6.4-8.2)
[2021-04-06 17:04] LABS: AMPHET/METH SCREEN,URINE NEGATIVE (NEGATIVE); BARBITURATE SCREEN, URINE NEGATIVE (NEGATIVE); BENZODIAZEPINES SCREEN,URINE NEGATIVE (NEGATIVE); CANNABINOID SCREEN,URINE NEGATIVE (NEGATIVE); COCAINE SCREEN,URINE NEGATIVE (NEGATIVE); METHADONE SCREEN, URINE NEGATIVE (NEGATIVE); OPIATE SCREEN,URINE NEGATIVE (NEGATIVE)
[2021-04-06 17:05] LABS: PHENCYCLIDINE SCREEN,URINE NEGATIVE (NEGATIVE)
[2021-04-06 18:06] VITALS: BP 138/95
== END 2021-04-06 18:27 | disposition home or self-care (01) ==
LOC: EMS 15:12
DX: F41.9 Anxiety disorder, unspecified (principal); R00.2 Palpitations; E11.9 Type 2 diabetes mellitus without complications; F20.9 Schizophrenia, unspecified
CPT/HCPCS: 80053; 82962; 84702; 85025; 93005; 99284

== ENCOUNTER 2022-05-20 20:39 | Emergency (ER) | payer OTHER ==
[~2022-05-20] VITALS: Ht 160 cm; Wt 131.8 kg
[~2022-05-20 20:39] MED LIST changes: +AMLO-258 PO; -BUPR-93 PO; +CHOL25TA4 PO; -CLON-592 PO; +CLOZ100T68 PO; -DIVA-80 PO; -ESCI20TA87 PO; +HYDR-4527 PO; +LITH600C5 PO; +METF-910 PO; +METO-558 PO; -MIRT30 PO; +OLAN5TAB52 PO; +POLY17PO47 PO; -QUET200T PO; -QUET50TA PO; +SENN1TAB72 PO; +TRAZ-252 PO
[2022-05-20 21:34] LABS: BASOPHILS % (AUTO) 0.8 % (0.0-2.0); EOSINOPHILS % (AUTO) 4.8 % (1.0-6.0); HEMATOCRIT 36.1 % (36-46); HEMOGLOBIN 11.5 g/dL (12.0-16.0); LYMPHOCYTES # (AUTO) 4.8 K/uL (1.0-4.8); LYMPHOCYTES % (AUTO) 36.6 % (22.0-44.0); MEAN CORPUSCULAR HEMOGLOBIN 23.2 pg (26.0-34.0); MEAN CORPUSCULAR HGB CONC 31.9 G/dL (31.0-37.0); MEAN CORPUSCULAR VOLUME 73 fL (80-100); MONOCYTES # (AUTO) 0.6 K/uL (0.1-1.0); MONOCYTES % (AUTO) 4.4 % (2.0-9.0); NEUTROPHILS # (AUTO) 7.1 K/uL (1.8-7.7); NEUTROPHILS % (AUTO) 53.4 % (40.0-70.0); RED BLOOD CELL COUNT(AUTO) 4.98 MIL/uL (4.00-5.20); RED CELL DISTRIBUTION WIDTH 16.6 % (11.5-14.5)
[2022-05-20 21:38] LABS: ANION GAP 9 mmol/L (8-16); CALCIUM, TOTAL 9.1 mg/dL (8.8-10.5); CARBON DIOXIDE 23 mmol/L (22-29); CHLORIDE 105 mmol/L (98-107); CREATININE 1.02 mg/dL (0.60-1.30); GLOMERULAR FILTR. RATE CALC > 60 mL/min (>60); GLUCOSE,RANDOM 88 mg/dL (70-110); POTASSIUM 4.1 mmol/L (3.5-5.1); SODIUM SERUM 137 mmol/L (136-145); UREA NITROGEN, BLOOD 16 mg/dL (7-18)
[2022-05-20 21:43] LABS: ALANINE AMINOTRANSFERASE 31 U/L (12-78); ALBUMIN 3.2 g/dL (3.4-5.0); ALKALINE PHOSPHATASE 118 U/L (46-116); ASPARTATE AMINOTRANSFERASE 12 U/L (15-37); BILIRUBIN,TOTAL 0.1 mg/dL (0.1-1.0); LIPASE 98 U/L (73-393); TOTAL PROTEIN, SERUM 7.4 g/dL (6.4-8.2)
[2022-05-20 21:52] LABS: PLATELET COUNT (AUTO) 415 K/uL (150-450)
[2022-05-20 22:17] LABS: APPEARANCE,URINE HAZY (CLEAR); BILIRUBIN,URINE NEGATIVE (NEGATIVE); GLUCOSE, URINE (UA) NEGATIVE (NEGATIVE); KETONES,URINE NEGATIVE (NEGATIVE); LEUKOCYTE ESTERASE ,URINE LARGE (NEGATIVE); NITRATE,URINE NEGATIVE (NEGATIVE); OCCULT BLOOD,URINE NEGATIVE (NEGATIVE); PH,URINE 5.5 (5.0-8.0); PROTEIN,URINE TRACE mg/dL (NEGATIVE); SPECIFIC GRAVITIY, URINE 1.025 (1.003-1.030); UROBILINOGEN,URINE <=1.0 mg/dL (<=1.0)
[2022-05-20 22:27] LABS: BACTERIA,URINE Moderate /HPF (None Seen); RBC,URINE None Seen /HPF (0-2); SQUAMOUS EPITHELIAL CELL,UR Many /LPF (None Seen)
[2022-05-20] MEDS ORDERED: CEPHALEXIN MONOHYDRATE 500 MG CAPSULE PO ONE (22:30)
[2022-05-20] MEDS ORDERED: ACETAMINOPHEN 500 MG TABLET PO ONE (22:30)
[2022-05-20] MEDS: MAG HYDROX/AL HYDROX/SIMETH ES 30 ML SUSPENSION UDCUP PO ONE ×2 (22:57→23:01)
[2022-05-20 23:44] VITALS: BP 139/83
== END 2022-05-21 00:11 | disposition home or self-care (01) ==
LOC: EMS 20:40
DX: K29.70 Gastritis, unspecified, without bleeding (principal); R10.13 Epigastric pain; N39.0 Urinary tract infection, site not specified; F31.9 Bipolar disorder, unspecified; E11.9 Type 2 diabetes mellitus without complications; F20.9 Schizophrenia, unspecified; F12.90 Cannabis use, unspecified, uncomplicated; Z86.59 Personal history of other mental and behavioral disorders; Z98.890 Other specified postprocedural states
CPT/HCPCS: 74176; 80053; 81001; 83690; 84703; 85025; 87086; 99284

== ENCOUNTER 2023-12-22 21:54 | Emergency (ER) | payer OTHER ==
[~2023-12-22] VITALS: Ht 160 cm; Wt 113.6 kg
[~2023-12-22 21:54] MED LIST changes: +CLOZ100T12 PO; -CLOZ100T68 PO; +METO-325 PO; -METO-558 PO; +SENN-7 PO; -SENN1TAB72 PO
[2023-12-22 23:24] LABS: BASOPHILS % (AUTO) 0.8 % (0.0-2.0); EOSINOPHILS % (AUTO) 0.4 % (1.0-6.0); HEMATOCRIT 35.8 % (36-46); HEMOGLOBIN 11.6 g/dL (12.0-16.0); LYMPHOCYTES # (AUTO) 2.9 K/uL (1.0-4.8); MEAN CORPUSCULAR HEMOGLOBIN 24.2 pg (26.0-34.0); MEAN CORPUSCULAR HGB CONC 32.5 G/dL (31.0-37.0); MEAN CORPUSCULAR VOLUME 75 fL (80-100); MONOCYTES # (AUTO) 0.8 K/uL (0.1-1.0); MONOCYTES % (AUTO) 8.2 % (2.0-9.0); NEUTROPHILS # (AUTO) 6.1 K/uL (1.8-7.7); NEUTROPHILS % (AUTO) 61.6 % (40.0-70.0); PLATELET COUNT (AUTO) 293 K/uL (150-450); RED CELL DISTRIBUTION WIDTH 15.7 % (11.5-14.5); WHITE BLOOD COUNT (AUTO) 9.9 K/uL (4.5-11.0)
[2023-12-22 23:33] LABS: APPEARANCE,URINE HAZY (CLEAR); BILIRUBIN,URINE NEGATIVE (NEGATIVE); COLOR,URINE YELLOW (YELLOW); GLUCOSE, URINE (UA) NEGATIVE (NEGATIVE); KETONES,URINE NEGATIVE (NEGATIVE); LEUKOCYTE ESTERASE ,URINE LARGE (NEGATIVE); NITRATE,URINE NEGATIVE (NEGATIVE); OCCULT BLOOD,URINE NEGATIVE (NEGATIVE); PH,URINE 5.5 (5.0-8.0); PROTEIN,URINE 30-70 mg/dL (NEGATIVE); SPECIFIC GRAVITIY, URINE 1.037 (1.003-1.030)
[2023-12-22 23:37] LABS: ANION GAP 13 mmol/L (8-16); CALCIUM, TOTAL 8.8 mg/dL (8.8-10.5); CARBON DIOXIDE 21 mmol/L (22-29); CHLORIDE 107 mmol/L (98-107); CREATININE 0.87 mg/dL (0.60-1.30); GLOMERULAR FILTR. RATE CALC > 60 mL/min (>60); GLUCOSE,RANDOM 98 mg/dL (70-110); SODIUM SERUM 140 mmol/L (136-145); UREA NITROGEN, BLOOD 10 mg/dL (7-18)
[2023-12-22 23:43] LABS: BACTERIA,URINE Few /HPF (None Seen); RBC,URINE None Seen /HPF (0-2); SQUAMOUS EPITHELIAL CELL,UR Many /LPF (None Seen)
[2023-12-22 23:50] LABS: ALANINE AMINOTRANSFERASE 35 U/L (12-78); ALBUMIN 3.1 g/dL (3.4-5.0); ALKALINE PHOSPHATASE 96 U/L (46-116); ASPARTATE AMINOTRANSFERASE 15 U/L (15-37); BILIRUBIN,TOTAL 0.3 mg/dL (0.1-1.0); HCG,QUANTITATIVE < 1 mIU/mL (0-6); LIPASE 29 U/L (16-77); TOTAL PROTEIN, SERUM 7.7 g/dL (6.4-8.2)
[2023-12-23 03:38] LABS: ANION GAP 14 mmol/L (8-16); BASOPHILS % (AUTO) 0.5 % (0.0-2.0); CALCIUM, TOTAL 8.9 mg/dL (8.8-10.5); CARBON DIOXIDE 20 mmol/L (22-29); CHLORIDE 106 mmol/L (98-107); CREATININE 0.83 mg/dL (0.60-1.30); EOSINOPHILS % (AUTO) 0.3 % (1.0-6.0); GLOMERULAR FILTR. RATE CALC > 60 mL/min (>60); GLUCOSE,RANDOM 96 mg/dL (70-110); HEMATOCRIT 35.9 % (36-46); HEMOGLOBIN 11.6 g/dL (12.0-16.0); LYMPHOCYTES # (AUTO) 4.2 K/uL (1.0-4.8); LYMPHOCYTES % (AUTO) 28.7 % (22.0-44.0); MEAN CORPUSCULAR HEMOGLOBIN 24.3 pg (26.0-34.0); MEAN CORPUSCULAR HGB CONC 32.3 G/dL (31.0-37.0); MEAN CORPUSCULAR VOLUME 75 fL (80-100); MONOCYTES % (AUTO) 6.7 % (2.0-9.0); NEUTROPHILS # (AUTO) 9.3 K/uL (1.8-7.7); NEUTROPHILS % (AUTO) 63.8 % (40.0-70.0); POTASSIUM 4.1 mmol/L (3.5-5.1); RED BLOOD CELL COUNT(AUTO) 4.76 MIL/uL (4.00-5.20); RED CELL DISTRIBUTION WIDTH 15.7 % (11.5-14.5); SODIUM SERUM 140 mmol/L (136-145); UREA NITROGEN, BLOOD 9 mg/dL (7-18); WHITE BLOOD COUNT (AUTO) 14.6 K/uL (4.5-11.0)
[2023-12-23 03:49] LABS: ALANINE AMINOTRANSFERASE 33 U/L (12-78); ALBUMIN 3.1 g/dL (3.4-5.0); ALKALINE PHOSPHATASE 100 U/L (46-116); ASPARTATE AMINOTRANSFERASE 15 U/L (15-37); BILIRUBIN,TOTAL 0.4 mg/dL (0.1-1.0); HCG,QUANTITATIVE < 1 mIU/mL (0-6); LIPASE 20 U/L (16-77); TOTAL PROTEIN, SERUM 7.8 g/dL (6.4-8.2)
[2023-12-23 04:05] LABS: PLATELET COUNT (AUTO) 260 K/uL (150-450)
[2023-12-23 04:10] VITALS: BP 132/62; PULSE 72; RESP 16; TEMP 98
[2023-12-23] MEDS ORDERED: CEPH-558 PO (05:19)
[2023-12-23] MEDS: CEPHALEXIN MONOHYDRATE 500 MG CAPSULE PO ONE (05:21)
== END 2023-12-23 05:22 | disposition home or self-care (01) ==
LOC: EMS 21:56
DX: N39.0 Urinary tract infection, site not specified (principal); R10.9 Unspecified abdominal pain; E11.9 Type 2 diabetes mellitus without complications; F20.9 Schizophrenia, unspecified; F31.9 Bipolar disorder, unspecified; F12.90 Cannabis use, unspecified, uncomplicated; Z98.890 Other specified postprocedural states
CPT/HCPCS: 74018; 80053; 81001; 83690; 84702; 85025; 87086; 87186; 99284; 36415-L1; 36415-TC